=== PATIENT | female | born 1960 | race Caucasian/White ===

== ENCOUNTER 2019-12-01 15:31 | Emergency (ER) | payer OTHER ==
--- NOTE | 2019-12-01 15:36 | PDOC ---
Rapid Medical Evaluation Chief Complaint: Headache Time Seen by Provider: 12/01/19 15:32 Medical Evaluation: 12/01/19 15:34 I performed a brief in-person evaluation of this patient. Pt is a 59 y/o female with complaint of OTERO for the last 1 week with dizziness. She thinks she may have issues with her BP. Took Tylenol with some relief. No migraine history. She is also complaining of cp and sob x 5 days. Pertinent physical exam findings: walking without ataxia, normal speech I have ordered the following: saline lock, cbc, cmp, cardiac labs, ekg Patient to proceed to ED for further evaluation. Discharge Disposition - Diagnosis Chest pain, Headache - Referrals - Patient Instructions - Post Discharge Activity
[2019-12-01 15:37] VITALS: TEMP 98; BMI 36.3
[2019-12-01] MEDS ORDERED: SODIUM CHLORIDE 0.9% 500 ML INFUS.BAG IV ONE (16:10)
[2019-12-01 16:59] LABS: BASO % 1.1 % (0-2.0); EOS % 3.9 % (0-4.5); HEMATOCRIT 44.5 % (32.4-45.2); HEMOGLOBIN 15.1 GM/dL (10.7-15.3); LYMPH % 36.8 % (8-40); MCH 31.4 pg (25.7-33.7); MCHC 33.9 g/dl (32.0-36.0); MEAN CELL VOLUME 92.5 fl (80-96); MONO % 15.4 % (3.8-10.2); NEUT % 42.8 % (42.8-82.8); PLATELET COUNT 227 K/MM3 (134-434); RBC 4.82 M/mm3 (3.60-5.2); RDW 13.2 % (11.6-15.6); WHITE BLOOD COUNT 6.1 K/mm3 (4.0-10.0)
--- NOTE | 2019-12-01 17:03 | PDOC ---
History of Present Illness - General Chief Complaint: Headache Stated Complaint: HEADACHE Time Seen by Provider: 12/01/19 15:32 - History of Present Illness Initial Comments: Mayte Mccracken is a 59 y/o female with PMH significant for HTN (on lasix), presenting today with 1 week of intermittent chest pressure. Pain is rep roducible. Non radiating. Non pleuritic. No shortness of breath. No abd pain. No leg swelling. Reports mild headache and lightheadedness, no dizziness. No nausea/vomiting. Reports no change in appetite or hydration. No dysuria/constipation/diarrhea. Past History - Medical History Allergies/Adverse Reactions: Allergies Allergy/AdvReac Type Severity Reaction Status Date / Time ibuprofen Allergy Verified 12/01/19 15:37 Home Medications: Ambulatory Orders Chlorthalidone [Hygroton -] 25 mg PO DAILY 12/01/19 Lisinopril [Prinivil] 10 mg PO DAILY 12/01/19 COPD: No HTN: Yes - Psycho-Social/Smoking History Smoking History: Never smoked - Substance Abuse Hx (Audit-C & DAST Scrn) How often the patient has a drink containing alcohol: Never Score: In Men: 4 or > Positive; In Women: 3 or > Positive: 0 Screen Result (Pos requires Nsg. Audit-10AR): Negative Review of Systems - Review of Systems Comments:: GENERAL/CONSTITUTIONAL: No fever or chills. No weakness._ HEAD, EYES, EARS, NOSE AND THROAT: No change in vision. No change in hearing. No sore throat._ CARDIOVASCULAR: Reports chest pressure. No shortness of breath_ RESPIRATORY: Denies cough, hemoptysis_ GASTROINTESTINAL: No nausea, vomiting, diarrhea or constipation._ GENITOURINARY: No dysuria, frequency, or change in urination._ MUSCULOSKELETAL: No joint or muscle swelling or pain. No neck or back pain._ SKIN: No rash_ NEUROLOGIC: Reports headache. No vertigo, loss of consciousness, or change in strength/sensation._ ENDOCRINE: No increased thirst. No abnormal weight change_ HEMATOLOGIC/LYMPHATIC: No anemia, easy bleeding, or history of blood clots._ ALLERGIC/IMMUNOLOGIC: No hives or skin allergy._ *Physical Exam - Vital Signs Last Vital Signs Temp Pulse Resp BP Pulse Ox 98 F 70 20 133/80 100 12/01/19 15:33 12/01/19 21:04 12/01/19 21:04 12/01/19 21:04 12/01/19 21:04 - Physical Exam GENERAL: Awake, alert, and oriented to person/place/time, in no acute distress_ HEAD: No signs of trauma, normocephalic, atraumatic _ EYES: PERRLA, EOMI, sclera anicteric, conjunctiva clear_ ENT: Hearing grossly normal, nares patent, oropharynx clear without exudates. No uvular deviation. Moist mucosa_ NECK: Normal ROM, supple, no lymphadenopathy, JVD, or masses_ LUNGS: No distress, speaks in full sentences, clear to auscultation bilaterally _ HEART: Regular rate and rhythm, normal S1 and S2, no murmurs appreciated, peripheral pulses normal and equal bilaterally._ CHEST: Mild TTP ove sternum, no obvious trauma, ecchymosis, erythema, rash. ABDOMEN: Soft, nontender, normoactive bowel sounds. No guarding, no rebound. No masses_ EXTREMITIES: Normal inspection, Normal range of motion, no edema. No clubbing or cyanosis_ NEUROLOGICAL: Cranial nerves II through XII grossly intact. Normal speech, normal gait, no focal sensorimotor deficits. No nystagmus on far lateral gaze. SKIN: Warm, Dry, normal turgor, no rashes or lesions noted_ Heart Score/ECG Review - History History: Slightly suspicious - Electrocardiogram EKG: Normal - Age Age: 45-65 - Risk Factors Risk Factors Heart Score: Yes Hx Hypertension Based on the list above the patient has:: 1-2 risk factors - Troponin Troponin: </= normal limit - Score Heart Score - Total: 2 ED Treatment Course - LABORATORY CBC & Chemistry Diagram: 12/01/19 16:30 12/01/19 16:30 - ADDITIONAL ORDERS Additional order review: Laboratory Results 12/01/19 12/01/19 12/01/19 19:15 16:30 16:30 PT with INR INR PTT (Actin FS) D-Dimer 386 Sodium 133 L Potassium 4.2 Chloride 93 L Carbon Dioxide 29 Anion Gap 10 BUN 12.4 Creatinine 0.9 Est GFR (CKD-EPI)AfAm 81.69 Est GFR (CKD-EPI)NonAf 70.48 Random Glucose 93 Calcium 10.2 H Magnesium 2.4 Total Bilirubin 0.5 AST 80 H ALT 148 H Alkaline Phosphatase 95 Creatine Kinase 105 Troponin I < 0.02 B-Natriuretic Peptide 21.0 Total Protein 8.4 H Albumin 4.3 Urine Color Yellow Urine Appearance Clear Urine pH 7.0 Ur Specific Kimberly 1.012 Urine Protein Negative Urine Glucose (UA) Negative Urine Ketones Negative Urine Blood Negative Urine Nitrite Negative Urine Bilirubin Negative Urine Urobilinogen 0.2 Ur Leukocyte Esterase Negative 12/01/19 16:30 PT with INR 11.20 INR 0.95 PTT (Actin FS) 32.0 D-Dimer Sodium Potassium Chloride Carbon Dioxide Anion Gap BUN Creatinine Est GFR (CKD-EPI)AfAm Est GFR (CKD-EPI)NonAf Random Glucose Calcium Magnesium Total Bilirubin AST ALT Alkaline Phosphatase Creatine Kinase Troponin I B-Natriuretic Peptide Total Protein Albumin Urine Color Urine Appearance Urine pH Ur Specific Kimberly Urine Protein Urine Glucose (UA) Urine Ketones Urine Blood Urine Nitrite Urine Bilirubin Urine Urobilinogen Ur Leukocyte Esterase 12/01/19 16:30 RBC 4.82 MCV 92.5 MCHC 33.9 RDW 13.2 MPV 9.0 Neutrophils % 42.8 Lymphocytes % 36.8 Monocytes % 15.4 H Eosinophils % 3.9 Basophils % 1.1 - RADIOLOGY Radiology Studies Ordered: Category Date Time Status HEAD CT WITHOUT CONTRAST [CT] Stat CT Scan 12/01/19 18:17 Taken - Medications Given in the ED: ED Medications Discontinued Medications Generic Name Dose Route Start Last Admin Trade Name Kemq PRN Reason Stop Dose Admin Acetaminophen 1,000 mg 12/01/19 17:26 12/01/19 18:00 Ofirmev Injection - IVPB 12/01/19 17:27 Not Given ONCE ONE Acetaminophen 1,000 mg 12/01/19 17:39 12/01/19 18:00 Ofirmev Injection - IVPB 12/01/19 17:40 1,000 mg ONCE ONE Administration Sodium Chloride 500 ml 12/01/19 16:10 12/01/19 17:02 Normal Saline - IV 12/01/19 16:11 500 ml ONCE ONE Administration Medical Decision Making - Medical Decision Making 12/01/19 17:04 59F hx of HTN presenting today with chest pressure for 7 days. HEART score 2. -EKG -CXR -labs -urine 12/01/19 17:12 EKG shows 73 bpm, NSR, no ST elevation, QTc 436, nml axis, nml intervals. 12/01/19 17:35 CXR negative for acute chest pathology. 12/01/19 17:36 Labs reviewed. Laboratory Last Values WBC 6.1 K/mm3 (4.0-10.0) 12/01/19 16:30 RBC 4.82 M/mm3 (3.60-5.2) 12/01/19 16:30 Hgb 15.1 GM/dL (10.7-15.3) 12/01/19 16:30 Hct 44.5 % (32.4-45.2) 12/01/19 16:30 MCV 92.5 fl (80-96) 12/01/19 16:30 MCH 31.4 pg (25.7-33.7) 12/01/19 16:30 MCHC 33.9 g/dl (32.0-36.0) 12/01/19 16:30 RDW 13.2 % (11.6-15.6) 12/01/19 16:30 Plt Count 227 K/MM3 (134-434) 12/01/19 16:30 MPV 9.0 fl (7.5-11.1) 12/01/19 16:30 Absolute Neuts (auto) 2.6 K/mm3 (1.5-8.0) 12/01/19 16:30 Neutrophils % 42.8 % (42.8-82.8) 12/01/19 16:30 Lymphocytes % 36.8 % (8-40) 12/01/19 16:30 Monocytes % 15.4 % (3.8-10.2) H 12/01/19 16:30 Eosinophils % 3.9 % (0-4.5) 12/01/19 16:30 Basophils % 1.1 % (0-2.0) 12/01/19 16:30 Nucleated RBC % 0 % (0-0) 12/01/19 16:30 PT with INR 11.20 SEC (9.7-13.0) 12/01/19 16:30 INR 0.95 (0.83-1.09) 12/01/19 16:30 PTT (Actin FS) 32.0 SECONDS (25.2-36.5) 12/01/19 16:30 Sodium 133 mmol/L (136-145) L 12/01/19 16:30 Potassium 4.2 mmol/L (3.5-5.1) 12/01/19 16:30 Chloride 93 mmol/L (98-107) L 12/01/19 16:30 Carbon Dioxide 29 mmol/L (21-32) 12/01/19 16:30 Anion Gap 10 MMOL/L (8-16) 12/01/19 16:30 BUN 12.4 mg/dL (7-18) 12/01/19 16:30 Creatinine 0.9 mg/dL (0.55-1.3) 12/01/19 16:30 Est GFR (CKD-EPI)AfAm 81.69 12/01/19 16:30 Est GFR (CKD-EPI)NonAf 70.48 12/01/19 16:30 Random Glucose 93 mg/dL (74-106) 12/01/19 16:30 Calcium 10.2 mg/dL (8.5-10.1) H 12/01/19 16:30 Magnesium 2.4 mg/dL (1.8-2.4) 12/01/19 16:30 Total Bilirubin 0.5 mg/dL (0.2-1) 12/01/19 16:30 AST 80 U/L (15-37) H 12/01/19 16:30 ALT 148 U/L (13-61) H 12/01/19 16:30 Alkaline Phosphatase 95 U/L (45-117) 12/01/19 16:30 Creatine Kinase 105 U/L (26-192) 12/01/19 16:30 Troponin I < 0.02 ng/ml (0.00-0.05) 12/01/19 16:30 Total Protein 8.4 g/dl (6.4-8.2) H 12/01/19 16:30 Albumin 4.3 g/dl (3.4-5.0) 12/01/19 16:30 12/01/19 19:23 CT head negative for acute intracranial pathology. 12/01/19 20:41 Pt reassessed. Reports significant improvement of headache. Plan to d/c home with PCP f/u. All questions answered. Return precautions given. Pt verbalized understanding and agreement with plan. Discharge - Discharge Information Problems reviewed: Yes Clinical Impression/Diagnosis: Chest pain, Headache Condition: Improved Disposition: HOME - Admission No - Follow up/Referral Referrals: [facility] [place] [facility] at [place] [Provider Group] - Patient Discharge Instructions Patient Printed Discharge Instructions: DI for Headache, DI for Chest Pain Additional Instructions: Please make a follow up appointment with a primary care doctor (referral provided here). Please keep yourself well hydrated and well nourished as much as possible. If you experience any new, worsening, or concerning symptoms, including worsening chest pain, headache, shortness of breath, leg swelling, or any other concerns, please return to the emergency department. Paras smith traci de seguimiento con un mdico de atencin primaria (se proporciona smith referencia aqu). Mantngase billie hidratado y billie alimentado tanto nohemi sea posible. Si experimenta cualquier sntoma nuevo, que empeora o preocupa, incluido un empeoramiento del dolor en el pecho, dolor de nica, dificultad para respirar, hinchazn de las piernas o cualquier otra inquietud, regrese al departamento de emergencias. - Post Discharge Activity
[2019-12-01 17:21] LABS: INR 0.95 (0.83-1.09); PROTHROMBIN TIME (PATIENT) 11.2 SEC (9.7-13.0)
[2019-12-01 17:24] LABS: ALBUMIN 4.3 g/dl (3.4-5.0); ALK PHOS 95 U/L (45-117); ANION GAP 10 MMOL/L (8-16); BILIRUBIN,TOTAL 0.5 mg/dL (0.2-1); BLOOD UREA NITROGEN 12.4 mg/dL (7-18); CALCIUM 10.2 mg/dL (8.5-10.1); CHLORIDE 93 mmol/L (98-107); CO2 29 mmol/L (21-32); CREATININE 0.9 mg/dL (0.55-1.3); GLUCOSE,RANDOM 93 mg/dL (74-106); MAGNESIUM 2.4 mg/dL (1.8-2.4); POTASSIUM 4.2 mmol/L (3.5-5.1); SGOT/AST 80 U/L (15-37); SGPT/ALT 148 U/L (13-61); SODIUM 133 mmol/L (136-145); TOT PROT 8.4 g/dl (6.4-8.2)
[2019-12-01] MEDS ORDERED: ACETAMINOPHEN 1000 MG/100 ML VIAL (NON FORMULARY) IVPB ONE ×2 (17:26→17:39)
[2019-12-01] MEDS ORDERED: ACETAMINOPHEN INJECTION 100 ML IVPB ONE (17:46)
--- NOTE | 2019-12-01 18:06 | PDOC ---
Documentation entered by Fanny Wagner SCRIBE, acting as scribe for Carrie Baez MD. Carrie Baez MD: This documentation has been prepared by the yarielibeBernard Ana, SCRIBE, under my direction and personally reviewed by me in its entirety. I confirm that the documentation accurately reflects all work, treatment, procedures, and medical decision making performed by me. Attending Attestation - Resident Resident Name: Benjie Barahona - ED Attending Attestation I have performed the following: I have examined & evaluated the patient, The case was reviewed & discussed with the resident, I agree w/resident's findings & plan, Exceptions are as noted - HPI HPI: 12/01/19 17:04 Patient is a 59 year old female with a significant past medical history of HTN (on lasix) who presents to the ED with chest pressure x1 week. Patient said the pain is reproducible but non radiating and non pleuritic. Patient stated she has a mild headache along with some lightheadedness for days Patient denies: Any dizziness, nausea, vomiting, any appetite or hydration changes SOB, abdominal pain, dysuria, constipation, diarrhea, lower extremity edema. Allergies: Ibuprofen 12/01/19 18:27 - Physicial Exam PE: 12/01/19 18:06 wnwd 59 yo female p/w intermittent chest pain and headache for 7 days 12/01/19 18:06 head ncat neck supple lungs cta b/l cvs tachycardia abdomen no guarding skin warm and dry neuro axxox3,ambulatory,motor strength 5/5 b/l 12/01/19 18:22 12/01/19 19:01 12/01/19 19:27 - Medical Decision Making 12/01/19 20:42 ct scan of head negative for any acute intracranial pathology, no bleed, no infarct,no masses ,no midline shift negative troponin ekg nsr @ 73 bpm cxr napd pt has no gross focal neuro deficits pt feels better after IVF and will be discharged with follow up at the [facility] clinic at [facility] 12/01/19 20:53 Discharge - Discharge Information Problems reviewed: Yes Clinical Impression/Diagnosis: Chest pain, Headache Condition: Improved Disposition: HOME - Follow up/Referral Referrals: [facility] [place] [facility] at [place] [Provider Group] - Patient Discharge Instructions Patient Printed Discharge Instructions: DI for Headache, DI for Chest Pain Additional Instructions: Please make a follow up appointment with a primary care doctor (referral provided here). Please keep yourself well hydrated and well nourished as much as possible. If you experience any new, worsening, or concerning symptoms, including worsening chest pain, headache, shortness of breath, leg swelling, or any other concerns, please return to the emergency department. Paras smith traci de seguimiento con un mdico de atencin primaria (se proporciona smith referencia aqu). Mantngase billie hidratado y billie alimentado tanto nohemi sea posible. Si experimenta cualquier sntoma nuevo, que empeora o preocupa, incluido un empeoramiento del dolor en el pecho, dolor de nica, dificultad para respirar, hinchazn de las piernas o cualquier otra inquietud, regrese al departamento de emergencias. - Post Discharge Activity
[2019-12-01 20:24] LABS: URINE APPEARANCE CLEAR; URINE BILIRUBIN NEGATIVE (NEGATIVE); URINE COLOR YELLOW; URINE GLUCOSE (UA) NEGATIVE (NEGATIVE); URINE KETONE NEGATIVE (NEGATIVE); URINE LEUK ESTERASE NEGATIVE (NEGATIVE); URINE NITRITE NEGATIVE (NEGATIVE); URINE PROTEIN NEGATIVE (NEGATIVE); URINE UROBILINOGEN 0.2 mg/dL (0.2-1.0)
[2019-12-01 21:06] VITALS: BP 133/80; PULSE 70
--- NOTE | 2019-12-02 09:37 | EKG ---
Test Reason : Blood Pressure : / mmHG Vent. Rate : 073 BPM Atrial Rate : 073 BPM P-R Int : 176 ms QRS Dur : 106 ms QT Int : 396 ms P-R-T Axes : 061 007 031 degrees QTc Int : 436 ms NORMAL SINUS RHYTHM POSSIBLE INFERIOR INFARCT , AGE UNDETERMINED ABNORMAL ECG NO PREVIOUS ECGS AVAILABLE Confirmed by Christianne Osuna ([id number]) on 12/02/2019 9:36:50 AM Referred By: Confirmed By:Christianne Osuna
== END 2019-12-01 21:05 | disposition home or self-care (01) ==
LOC: JER 15:31
PROC: 3E033NZ Introduction of Analgesics, Hypnotics, Sedatives into Peripheral Vein, Percutaneous Approach (ICD-10-PCS; principal; 2019-12-01)
PROC: 3E033GC Introduction of Other Therapeutic Substance into Peripheral Vein, Percutaneous Approach (ICD-10-PCS; 2019-12-01)
DX: R07.9 Chest pain, unspecified (principal); R51 Headache
CPT/HCPCS: 36415; 70450-TC; 71046-TC-FY; 80053; 81003; 82550; 83735; 83880; 84484; 85025; 85379; 85610; 85730; 93005; 93010; 99285-25; J0131

== ENCOUNTER 2023-06-07 13:15 | Emergency (ER) | payer OTHER ==
[2023-06-07 13:27] VITALS: TEMP 98.5; BMI 26.6
[2023-06-07 15:11] VITALS: BP 156/96; PULSE 83; RESP 18
== END 2023-06-07 16:57 | disposition home or self-care (01) ==
LOC: JERFT 13:15
DX: K62.89 Other specified diseases of anus and rectum (principal); K64.9 Unspecified hemorrhoids
CPT/HCPCS: 99283-25